=== PATIENT | female | born 1975 | race Caucasian/White ===

== ENCOUNTER 2021-04-18 08:53 | Emergency (ER) | payer OTHER ==
[~2021-04-18] VITALS: Ht 160 cm; Wt 66.7 kg
[2021-04-18 09:20] VITALS: BP 133/95
--- NOTE | 2021-04-18 09:41 | NUR ---
45 Y/o Female BIB self for c/o hematuria x last night. Unsure if the blood was from her vaginal canal or not. C/o lower abd sharp 8/10 pain in her c section site . Non radiating. Denies N/V/D/CP. Pmhx: C section x 3. Last one in 1999 Allergies: Denies Home meds: Ibuprofen 600 mg 0830
--- NOTE | 2021-04-18 10:49 | NUR ---
DR HOLM AT BEDSIDE EXAMINING PT
[2021-04-18] MEDS ORDERED: cefTRIAXone 500 MG in LIDOCAINE MPF 1% 1 ML IM ONE (11:00)
[2021-04-18] MEDS ORDERED: LIDOCAINE MPF 1% 5 ML ONE (11:04)
[2021-04-18] MEDS ORDERED: cefTRIAXone 500 MG VIAL ONE (11:04)
[2021-04-18] MEDS ORDERED: DOXY-487 PO (11:39)
[2021-04-18] MEDS ORDERED: IBUP-1876 PO (11:40)
[2021-04-18] MEDS ORDERED: KETOROLAC 30 MG/ML VIAL IM ONE (11:45)
[2021-04-18 11:53] VITALS: BP 127/88
--- NOTE | 2021-04-18 11:53 | NUR ---
Patient discharged with v/s stable. Written and verbal after care instructions given and explained. Patient alert, oriented and verbalized understanding of instructions. Ambulatory with steady gait. All questions addressed prior to discharge. ID band removed. Patient advised to follow up with PMD. Rx of DOXYCYCLINE HYCLATE AND IBUPROFEN given. Patient educated on indication of medication including possible reaction and side effects. Opportunity to ask questions provided and answered.
== END 2021-04-18 11:53 | disposition home or self-care (01) ==
LOC: MED 08:53
DX: N39.0 Urinary tract infection, site not specified (principal); Z79.899 Other long term (current) drug therapy; Z98.890 Other specified postprocedural states
CPT/HCPCS: 36415; 81002; 81025; 87491; 96372; 99284; J0696; J1885; J2001

== ENCOUNTER 2022-02-26 13:12 | Emergency (ER) | payer OTHER ==
[~2022-02-26] VITALS: Ht 160 cm; Wt 63.5 kg
[~2022-02-26 13:12] MED LIST: DOXY-487 PO; IBUP-1876 PO
[2022-02-26 13:23] VITALS: BP 126/78
--- NOTE | 2022-02-26 13:25 | NUR ---
PT AMBULATED TO LOBBY
[2022-02-26] MEDS ORDERED: IBUP-2213 PO (14:19)
[2022-02-26] MEDS ORDERED: PROM118S5 PO (14:19)
[2022-02-26] MEDS ORDERED: BENZ-300 PO (14:19)
--- NOTE | 2022-02-26 14:30 | NUR ---
charles swabbed at this time
[2022-02-26 14:37] VITALS: BP 126/78
--- NOTE | 2022-02-26 14:37 | NUR ---
Patient discharged with v/s stable. Written and verbal after care instructions given and explained. Patient alert, oriented and verbalized understanding of instructions. Ambulatory with steady gait. All questions addressed prior to discharge. ID band removed. Patient advised to follow up with PMD. Rx of ibuprofen, cepacol sore throat, promethazine (sent) given. Patient educated on indication of medication including possible reaction and side effects. Opportunity to ask questions provided and answered.
== END 2022-02-26 14:37 | disposition home or self-care (01) ==
LOC: MED 13:12
DX: J06.9 Acute upper respiratory infection, unspecified (principal); Z20.822 Contact with and (suspected) exposure to COVID-19; R03.0 Elevated blood-pressure reading, without diagnosis of hypertension
CPT/HCPCS: 99283